=== PATIENT | female | born 1980 | race Caucasian/White ===

== ENCOUNTER 2019-08-09 01:05 | Day surgery (SDC) | payer OTHER, SELFPAY ==
[2019-07-26 09:31] VITALS: BMI 29.8
[2019-08-09 07:00] VITALS: BP 172/108; PULSE 100; RESP 16; TEMP 37.3; O2SAT 99; BMI 31.7
--- NOTE | 2019-08-09 07:28 | PM.HPGS ---
History of Present Illness History of Present Illness Consent: Risks, benefits, and alternatives have been discussed and questions answered. Patient agrees to proceed with procedure. Chief complaint: uterine fibroid Narrative: Crissy Clayton is a 38 year old female with fibroids. Per u/s large submucosal fibroid noted. Plan hysteroscopy with D&C and possible myosure. Reviewed risks of infection, bleeding, perforation, and fluid imbalance. Discussed possible need for more than one procedure to remove if fluid imbalance. Patient agrees to proceed. Meds Home Medications and Allergies Home Medications Medication Instructions Recorded Confirmed Type norgestimate-ethinyl estradiol 1 tablet PO DAILY 07/26/19 07/26/19 History Allergies Allergy/AdvReac Type Severity Reaction Status Date / Time Penicillins Allergy Verified 05/13/13 14:22 Vital Signs Vital Signs - 24 hr 08/09/19 07:00 Temperature 99.2 F Pulse Rate 100 Respiratory Rate 16 Blood Pressure 172/108 H Pulse Oximetry 99 Exam Const: General: healthy appearing and alert Orientation/consciousness: patient oriented x3 Resp: Effort & Inspection: normal respiratory effort Auscultation: clear to auscultation bilaterally Cardio: Rate: regular rate Rhythm: regular rhythm GI: GI Palp: Yes Soft to palpation, No Tenderness to palpation present (GI) and No Palpable mass present : External Female Exam: normal external appearance Speculum Exam - Vagina: normal appearance of the vagina and normal vaginal discharge Speculum Exam - Cervix: normal appearance of the cervix Bimanual exam- vagina & uterus: consistency normal and enlarged (about 12 wks) Bimanual Exam- Adnexa, other: normal adnexae and No adnexal tenderness Neuro: General: patient oriented x3 Assessment and Plan Assessment and plan (1) Fibroids: Code(s): D21.9 - Benign neoplasm of connective and other soft tissue, unspecified Status: Acute Assessment and Plan: plan hysteroscopy with D&C and possible myosure
[2019-08-09] MEDS: LACTATED RINGERS 1,000 ML 30 ML IV CONT ×2 (07:30→08:49)
--- NOTE | 2019-08-09 07:32 | PM.IMHP ---
H&P: HPI History of Present Illness Chief complaint: uterine fibroid Narrative: Crissy Clayton is a 38 year old female with symptomatic uterine fibroids. Patient with complaints of urinary frequency, constipation, pelvic pressure. No heavy bleeding on continuous OCP's. Patient prefers to proceed with SHAYLEE-BS. Patient has no plans for children and realizes this would render her sterile. Reviewed risks of infection, bleeding, injury to internal organs (eg. bowel, bladder, ureters, ovaries), DVT, and general anesthesia. Patient voices understanding and agrees to proceed. Meds Home Medications and Allergies Home Medications Medication Instructions Recorded Confirmed Type norgestimate-ethinyl estradiol 1 tablet PO DAILY 07/26/19 07/26/19 History Allergies Allergy/AdvReac Type Severity Reaction Status Date / Time Penicillins Allergy Verified 05/13/13 14:22 Vital Signs Vital Signs - 24 hr 08/09/19 07:00 Temperature 99.2 F Pulse Rate 100 Respiratory Rate 16 Blood Pressure 172/108 H Pulse Oximetry 99 Exam Const: General: healthy appearing and alert Orientation/consciousness: patient oriented x3 Resp: Effort & Inspection: normal respiratory effort Auscultation: clear to auscultation bilaterally Cardio: Rate: regular rate Rhythm: regular rhythm GI: GI Palp: Yes Soft to palpation, No Tenderness to palpation present (GI) and No Palpable mass present : External Female Exam: normal external appearance Speculum Exam - Vagina: normal appearance of the vagina and normal vaginal discharge Speculum Exam - Cervix: normal appearance of the cervix Bimanual exam- vagina & uterus: consistency normal and enlarged (about 16 wk size) Bimanual Exam- Adnexa, other: normal adnexae and No adnexal tenderness Neuro: General: patient oriented x3 Assessment and Plan Assessment and plan (1) Fibroids: Code(s): D21.9 - Benign neoplasm of connective and other soft tissue, unspecified Status: Acute Assessment and Plan: plan to proceed with SHAYLEE-BS
--- NOTE | 2019-08-09 07:37 | SUR.PREOP ---
0743- notified Dr Vincent of Pt's blood pressure
--- NOTE | 2019-08-09 08:07 | WPDANESEPPF ---
Anes - Initial Pre Proc Eval Procedure: Operation Date: 08/09/19 08:15 Proposed Procedures p Hysteroscopy, Dilation and Curettage, Myosure - Cinda Sofia MD Date/Time: 08/09/19 08:07 Surgeon: Cinda Sofia MD Pre Op Diagnosis: uterine fibroid Patient Data Age: 38 Gender: F Height: 5 ft 6 in Weight: 89.3 kg Last Vital Signs Temp 99.2 F 08/09/19 07:00 Pulse 100 08/09/19 07:00 Resp 16 08/09/19 07:00 BP 172/108 H 08/09/19 07:00 Pulse Ox 99 08/09/19 07:00 Allergies Allergy/AdvReac Type Severity Reaction Status Date / Time Penicillins Allergy Verified 05/13/13 14:22 Home Medications Medication Instructions Recorded Confirmed Type norgestimate-ethinyl estradiol 1 tablet PO DAILY 07/26/19 07/26/19 History Patient hx anesthesia problems: none Family hx anesthesia problems: none [facility] Past Medical History Medical History (Updated 08/09/19 @ 08:08 by [place] Vincent MD) Hypertension BP elevated when goes to physician's office or hospital; denies otherwise; takes no medications Anes - Eval Final PreProcedure Day of Procedure 08/09/19 08:07 Patient weight: normal Heart: regular rate and rhythm Lungs: clear to auscultation Airway: Mallampati scale class II Neurological: alert and oriented Last oral intake: >/= 8 hours ASA classification: II Emergent: no Anesthetic plan: proceed Anesthesia type and monitoring: general GIVS and standard monitoring Informed Consent: The patient's anesthetic plan and its attendant risks and benefits were discussed with the patient/family/POA. Questions were solicited and answers provided to the satisfaction of the patient/family/POA.
[2019-08-09] MEDS: KETOROLAC 30 MG/ML VIAL (*BKC) IV PUSH (08:36)
--- NOTE | 2019-08-09 08:41 | PM.OP ---
Procedure Note - Brief Procedure Note - Brief Date of procedure: 08/09/19 Pre-op diagnosis: uterine fibroid Post-op diagnosis: other (endometrial polyp) Procedure performed: D&C hysteroscopy Anesthesia: MAC and local Surgeon: Cinda Sofia MD Estimated blood loss (mL): 5 Drains: No Packing: No Pathology: yes (endometrial curettings) Complications: No immediate complications Condition: stable Disposition: PACU Findings: uterus 8 cm; polyp at cervical-endometrial junction left side; remainder of endometrium appears normal; no visible fibroids
[2019-08-09 08:49] VITALS: BP 142/98; PULSE 84; RESP 14; O2SAT 97
[2019-08-09 09:20] VITALS: BP 147/98; PULSE 87; RESP 14
--- NOTE | 2019-08-09 09:52 | SUR.PHASEII ---
0920 elevated bp,dr bermudez aware,pt states only high with hospital visits..encouraged pt to check bp at home and report to primary md if remains high.
--- NOTE | 2019-08-09 12:12 | OP_ITS ---
DATE OF PROCEDURE: 08/09/2019 PREOPERATIVE DIAGNOSIS: Fibroid uterus. POSTOPERATIVE DIAGNOSIS: Fibroid uterus plus endometrial polyps. ANESTHESIA: MAC and local. FINDINGS: Uterus sounds to 8 cm. There is polyp on the left cervical endometrial junction. The remainder of the endometrium appears grossly normal. ESTIMATED BLOOD LOSS: 5 cc. PATHOLOGY: Endometrial curettings and polyp. DESCRIPTION OF PROCEDURE: The patient was taken to the operating room, placed under anesthesia, prepped and draped in the usual sterile fashion. Bivalved speculum was placed in the vagina. Cervix was grasped on the anterior lip with a tenaculum and injected with 1% lidocaine. The uterus was sounded to 8 cm. The cervix was serially dilated with Hegars. The diagnostic hysteroscope was placed with the above-stated findings. The mesher device is being opened and while further investigating with hysteroscope, the polyp was removed with the hysteroscope and was no longer visible. The hysteroscope was removed. Medium sharp curette was used to sharply curette the endometrium until a good uterine cry was noted in all areas. All instruments were removed. The polyp was not specifically identified, but the suctioning and bag suctioning are stent through the filter and all that was sent with the scrapings. Thus, all instruments were removed. The patient was taken to Recovery in stable condition. D I MT: Lloyd
== END 2019-08-09 09:40 | disposition home or self-care (01) ==
PROVIDERS: Visit Provider Obstetrics & Gynecology Gynecology
PROC: 0U5B8ZZ Destruction of Endometrium, Via Natural or Artificial Opening Endoscopic (ICD-10-PCS; CPT 58563; principal; 2019-08-09 08:15)
DX: D25.0 Submucous leiomyoma of uterus (principal); N84.0 Polyp of corpus uteri
CPT/HCPCS: 58558; 88305; A9270; J1100; J1885; J2250; J2405; J2704; J3010; J7030; J7120